=== PATIENT | male | born 1945 | race Caucasian/White ===

== ENCOUNTER 2021-08-02 09:28 | Outpatient (CLI) | payer MEDICARE, BC ==
[2021-08-02] MEDS ORDERED: IOVERSOL 320 100 ML VIAL IVP ONE ×2 (09:43→11:03)
[2021-08-02] MEDS ORDERED: IOPAMIDOL-300 50 ML VIAL ONE (09:43)
[2021-08-02 09:51] LABS: CREATININE 0.8 mg/dL (0.6-1.2)
[2021-08-02] MEDS ORDERED: IOPAMIDOL-300 50 ML VIAL PO ONE (11:02)
--- NOTE | 2021-08-02 11:53 | CT Report ---
PROCEDURE: CHEST W INDICATIONS: SKIN CA CONTRAST: IV CONTRAST: Optiray 320 ml: 100 PO CONTRAST: Isovue 300 ml50 TECHNIQUE: After the administration of intravenous contrast, 1 mm axial images were acquired from the pulmonary apices through the posterior costophrenic angles. Axial 5 mm soft tissue kernel reconstructions were performed as well as 8 mm axial MIP and coronal and sagittal 5 mm reformations. For radiation dose reduction, the following was used: automated exposure control, adjustment of mA and/or kV according to patient size. COMPARISON: None. FINDINGS: Image quality: Excellent. Lungs and pleura: Left lower lobe 0.3 cm, (3/155). A few additional small calcified granuloma. No mas s. No acute air space opacities. No pleural effusions or pneumothorax. Central and peripheral airwa ys are patent and normal in caliber. Mediastinum: Heart size is normal. No pericardial effusion. No mediastinal or hilar adenopathy by size criteria. Thoracic aorta and central pulmonary arteries are normal in size. Esophagus is quoc l in caliber. Small hiatal hernia. Bones and chest wall: No suspicious bony lesions. No vertebral body compression fractures. No axil georgiana or supraclavicular adenopathy by size criteria. Right axillary clips. Tiny right thyroid nodule. Abdomen: Please see separately dictated same day CT abdomen and pelvis. IMPRESSION: 1. Left lower lobe pulmonary nodule measuring 0.3 cm. This likely represents a noncalcified granuloma . There are a few calcified granuloma seen. 2. No suspicious adenopathy. Right axillary clips. Reviewed by: Vladimir Novoa MD on 08/02/2021 11:[address] [facility] Approved by: Vladimir Novoa MD on 08/02/2021 11:51 AM PST Station ID: [id number]
--- NOTE | 2021-08-02 12:01 | CT Report ---
PROCEDURE: Abdomen/Pelvis W INDICATIONS: SKIN CA CONTRAST: IV CONTRAST: Optiray 320 ml: 100 PO CONTRAST: Isovue 300 ml50 TECHNIQUE: After the administration of oral and intravenous contrast, 5 mm thick sections acquired from the diap hragms to the symphysis. 5 mm thick coronal and sagittal reformats were acquired. For radiation dos e reduction, the following was used: automated exposure control, adjustment of mA and/or kV accordin g to patient size. COMPARISON: None. FINDINGS: Image quality: Excellent. ABDOMEN: Lung bases: Please see separately dictated same day CT chest. Solid organs: Liver and spleen are normal in size and enhancement. Tiny hypodensity in the left lobe of the liver. Likely benign cyst or hemangioma. Tiny hypodensity in the spleen likely a benign cyst or hemangioma. Gallbladder is unremarkable. Biliary system is non dilated. Pancreas enhances quoc lly. No adrenal nodules. Kidneys demonstrate normal size and enhancement, without hydronephrosis. B ilateral extrarenal pelvises. Tiny hypodensity at the superior pole of the right kidney. Right kidney nonobstructing calculus measuring 0.3 cm. Left kidney nonobstructing calculus measuring 0.4 cm. Peritoneum and bowel: Bowel loops demonstrate normal wall thickness and caliber. A few colonic diver ticuli. Normal appendix. No free fluid or air. Nodes and vessels: No retroperitoneal or mesenteric adenopathy by size criteria. Aorta and inferior vena cava are normal in size. Miscellaneous: No ventral hernias. PELVIS: Genitourinary: Small areas of thickening in the left bladder wall with calcification, (6/38). Bladder is distended. Prostatomegaly. Miscellaneous: No inguinal hernias or adenopathy. Clips at the right groin. Bones: No suspicious bony lesions. Multilevel DDD. No vertebral body compression fractures. IMPRESSION: 1. No metastatic disease is identified. No suspicious adenopathy. 2. Focal areas of thickening in the left bladder with nondependent calcifications. This is indetermin ate but could represent bladder cancer. Recommend further evaluation with cystoscopy. 3. Small nonobstructing kidney stones. 4. Tiny hypodensity in the liver and spleen. Likely benign cysts or hemangiomas. Reviewed by: Vladimir Novoa MD on 08/02/2021 11:59 AM PST Approved by: Vladimir Novoa MD on 08/02/2021 11:59 AM [facility] Station ID: [id number]
== END 2021-08-02 09:29 | disposition home or self-care (01) ==
LOC: DI 09:28
PROVIDERS: ATTEND Physician Assistant Medical
DX: C43.61 Malignant melanoma of right upper limb, including shoulder (principal); R93.41 Abnormal radiologic findings on diagnostic imaging of renal pelvis, ureter, or bladder; N20.0 Calculus of kidney; R93.2 Abnormal findings on diagnostic imaging of liver and biliary tract; R93.89 Abnormal findings on diagnostic imaging of other specified body structures
CPT/HCPCS: 36415; 71260; 74177; 82565; Q9967

== ENCOUNTER 2021-11-30 19:56 | Emergency (ER) | payer MEDICARE, BC ==
--- NOTE | 2021-11-30 21:08 | ED Physician Documentation ---
PD HPI MALE - Stated complaint Stated Complaint: POST OP/UNABLE TO URINATE - Chief complaint Chief Complaint: Abd Pain - History obtained from History obtained from: Patient - History of Present Illness Timing - onset: Today Timing - duration: Hours Timing - details: Abrupt onset, Still present Associated symptoms: Unable to urinate PD HPI MALE CONTRIB FACTORS: Other (bladder surgery yesterday) Similar symptoms before: Diagnosis (urinary retention) Recently seen: Surgery - Additional information Additional information: 76-year-old Hector John has had a bladder resection done yesterday at [facility] and following that he had some difficulty with urinary retention and he had an In-N-Out cath done. When he was still unable to void, he had a Michaud catheter placed. Today he was instructed to remove the catheter which he did and he has not been able to void following that. He is taking some Pyridium and Cipro. He is also taking some oxycodone. Review of Systems Constitutional: denies: Fever Eyes: denies: Decreased vision Ears: denies: Ear pain Nose: denies: Congestion Throat: denies: Sore throat Cardiac: denies: Chest pain / pressure Respiratory: denies: Dyspnea GI: denies: Abdominal Pain, Nausea, Vomiting, Diarrhea : reports: Unable to Void, Hematuria Skin: denies: Rash Musculoskeletal: denies: Neck pain, Back pain, Extremity pain PD PAST MEDICAL HISTORY - Allergies Allergies/Adverse Reactions: Allergies Allergy/AdvReac Type Severity Reaction Status Date / Time sulfite Allergy Respiratory Verified 11/30/21 20:24 PD ED PE NORMAL - Vitals Vital signs reviewed: Yes (hypertensive ) - General General: Alert and oriented X 3, No acute distress, Well developed/nourished - HEENT HEENT: Atraumatic, PERRL - Respiratory Respiratory: No respiratory distress - Abdomen Abdomen: Normal bowel sounds, Soft, Non distended, No organomegaly, Other (minimal suprapubic tenderness) - Back Back: No CVA TTP, No spinal TTP - Derm Derm: Normal color, Warm and dry, No rash - Extremities Extremities: No deformity, No edema - Neuro Neuro: Alert and oriented X 3, tierce filler 2-12 intact, No motor deficit, No sensory deficit, Normal speech Eye Opening: Spontaneous Motor: Obeys Commands Verbal: Oriented GCS Score: 15 - Psych Psych: Normal mood, Normal affect Results - Vitals Vitals: Vital Signs - 24 hr 11/30/21 11/30/21 11/30/21 20:20 22:30 23:39 Temperature 36.8 C Heart Rate 86 78 84 Respiratory 14 17 14 Rate Blood Pressure 176/83 H 166/76 H 144/78 H O2 Saturation 97 96 98 Oxygen O2 Source Room air Procedures - Bedside sono Bedside sono by EMP: with the use of bedside ultrasound the bladder is imaged. It is full and there is a large clot about 200cc in size at the opening. The michaud balloon appears mid clot. PD MEDICAL DECISION MAKING - ED course Complexity details: reviewed results, re-evaluated patient, considered differential, d/w patient ED course: 76-year-old male with acute urinary retention after a surgical procedure has failed after removal of his Michaud catheter. He presents to our emergency department with retention and a bladder scan shows 550 mL after the patient is able to void 100 mL. We placed a 14 Romanian Michaud catheter assuming a simple retention and got no urine back. Bedside ultrasound was used and this demonstrated presence of a large clot in the bladder as well as urine. The nurse was able to flush the catheter and dislodge the clot and drain urine. Patient had relief of any pain. Dr. Rousseau the on-call urologist recommended a follow-up with Dr. Blanco in the morning by telephone. He indicates there is likely further work to be done on the bladder. The patient was very resistant to a suggestion of placement of a three-way Michaud catheter and bladder irrigation. He felt that he had had too much instrumentation and this was agonizing to the patient. We advised the patient to seek care at [facility] if he has further issues with not draining. Departure - Departure Disposition: 01 Home, Self Care Clinical Impression: Acute urinary retention Condition: Stable Instructions: ED Catheter Care Michaud, ED Retention Urinary Male Follow-Up: CHON VILLALOBOS MD [Primary Care Provider] - Comments: Hector, today it looks like you have clot retention and there is likely more work that will the need to be done on your bladder. Currently it looks like urine is flowing and the recommendation is to follow-up with Dr. Blanco tomorrow morning by telephone. If you have recurrence of your retention and become uncomfortable the recommendation is to follow-up at [facility] where you can see Dr. Bella directly. Discharge Date/Time: 11/30/21 23:40
[2021-11-30] MEDS ORDERED: LIDOCAINE 2% URO-JET 5 ML SYRINGE UR ONE (21:52)
[2021-11-30 23:40] VITALS: BP 144/78
== END 2021-11-30 23:40 | disposition home or self-care (01) ==
LOC: ED 19:56
DX: N32.89 Other specified disorders of bladder (principal); R33.8 Other retention of urine
CPT/HCPCS: 51702; 99282; 99283

== ENCOUNTER 2022-03-07 11:53 | Outpatient (CLI) | payer MEDICARE, BC ==
[~2022-03-07 11:53] MED LIST: GADOBUTROL 10 MMOL/10 ML VIAL ONE
[2022-03-07] MEDS ORDERED: DIATRIZOATE MEGLU/DIATRIZO SOD 30 ML BOTTLE PO ONE (12:14)
[2022-03-07 12:30] LABS: CREATININE 0.8 mg/dL (0.6-1.2)
[2022-03-07] MEDS ORDERED: GADOBUTROL 10 MMOL/10 ML VIAL IVP ONE (13:59)
--- NOTE | 2022-03-07 14:48 | MRI Report ---
PROCEDURE: Brain W/WO INDICATIONS: MALIGNANT MELANOMA CONTRAST: IV CONTRAST: Gadavist ml: 10 TECHNIQUE: Noncontrast axial T1 spin echo, axial T2 fast spin echo, sagittal and axial FLAIR, coronal T2 fast sp in echo, axial gradient echo, axial diffusion and ADC through the brain. After the administration of contrast, axial and coronal T1 spin echo with fat saturation through the brain. COMPARISON: None. FINDINGS: Image quality: Excellent. CSF spaces: Basal cisterns are patent. No extra-axial fluid collections. Ventricles are normal in size and shape. Brain: No midline shift. No intracranial bleeds or masses. No abnormal intracranial enhancement. There is cerebral volume loss for age. There is periventricular white matter chronic small vessel is chemic change. The brainstem appears normal. Diffusion-weighted images demonstrate no acute ischemi c insults. No chronic ischemic insults. Normal intravascular flow voids are present. Skull and face: Calvarial marrow is normal in signal. Orbits appear normal. Sinuses: Sinuses appear clear. Minimal scattered areas of fluid are present within the mastoid air cells bilaterally. IMPRESSION: 1. No acute intracranial process. No visualized metastatic disease. 2. Mild atrophy and chronic microvascular ischemic changes. Reviewed by: Lissette Murguia MD on 03/07/2022 2:47 PM PDT Approved by: Lissette Murguia MD on 03/07/2022 2:47 PM PDT Station ID: [id number]
--- NOTE | 2022-03-07 16:11 | CT Report ---
PROCEDURE: CHEST W INDICATIONS: MALIGNANT MELANOMA CONTRAST: IV CONTRAST: Optiray 320 ml: 100 PO CONTRAST: Optiray 320 ml50 TECHNIQUE: After the administration of intravenous contrast, 1 mm axial images were acquired from the pulmonary apices through the posterior costophrenic angles. Axial 5 mm soft tissue kernel reconstructions were performed as well as 8 mm axial MIP and coronal and sagittal 5 mm reformations. For radiation dose reduction, the following was used: automated exposure control, adjustment of mA and/or kV according to patient size. COMPARISON: CT chest 08/02/2021. FINDINGS: Image quality: Excellent. Lungs and pleura: No acute air space opacities. Pulmonary nodule in the left lower lobe measuring 2 mm, (3/146), unchanged. Right middle lobe calcified granuloma. No pleural effusions or pneumothorax. Central and peripheral airways are patent and normal in caliber. Mediastinum: Heart size is normal. No pericardial effusion. No mediastinal or hilar adenopathy by size criteria. Thoracic aorta and central pulmonary arteries are normal in size. Esophagus is quoc l in caliber. No hiatal hernia. Bones and chest wall: No suspicious bony lesions. No vertebral body compression fractures. No axil georgiana or supraclavicular adenopathy by size criteria. Right axillary clips. The thyroid is normal in s ize and there are no incidental findings.. Abdomen: Visualized upper abdominal solid organs appear normal. Upper abdominal bowel loops are nor mal in caliber. IMPRESSION: 1. No new or enlarging pulmonary nodules. Left lower lobe pulmonary nodule measuring 2 mm is unchange d. 2. No metastatic disease identified the chest. Please see separately dictated CT abdomen and pelvis. Reviewed by: Vladimir Novoa MD on 03/07/2022 4:09 PM PDT Approved by: Vladimir Novoa MD on 03/07/2022 4:09 PM PDT Station ID: [id number]
--- NOTE | 2022-03-07 16:35 | CT Report ---
PROCEDURE: Abdomen/Pelvis W INDICATIONS: MALIGNANT MELANOMA CONTRAST: IV CONTRAST: Optiray 320 ml: 100 PO CONTRAST: Optiray 320 ml50 TECHNIQUE: After the administration of oral and intravenous contrast, 5 mm thick sections acquired from the diap hragms to the symphysis. 5 mm thick coronal and sagittal reformats were acquired. For radiation dos e reduction, the following was used: automated exposure control, adjustment of mA and/or kV accordin g to patient size. COMPARISON: CT abdomen pelvis 08/02/2021 FINDINGS: Image quality: Excellent. ABDOMEN: Lung bases: Lung bases are clear. Heart size is normal. Solid organs: Liver is normal in size and enhancement. Evidence focus in the left lobe liver is unch anged. Gallbladder is unremarkable. Biliary system is non dilated. Pancreas enhances normally. Hypo dense focus in the spleen is unchanged. No splenomegaly. Small splenule. No adrenal nodules. Kidneys demonstrate normal size and enhancement. Mild left hydroureter is unchanged. Bilateral extra renal pelvises. Nonobstructing right kidney stone measuring 0.3 cm. There is scarring at the right ki dney. Nonobstructing left kidney stone measuring is 0.3 cm. One of the stones previously seen in the left kidney is located in the urinary bladder measuring 0.5 cm. Peritoneum and bowel: Bowel loops demonstrate normal wall thickness and caliber. Diverticulosis. Nor mal appendix. No free fluid or air. Nodes and vessels: No retroperitoneal or mesenteric adenopathy by size criteria. Aorta and inferior vena cava are normal in size. Miscellaneous: No ventral hernias. PELVIS: Genitourinary: Stone in the bladder measuring 0.5 cm. Bladder wall calcifications are again seen. Pro statomegaly. Miscellaneous: Possible fat-containing right inguinal hernia. No adenopathy. Right groin clips. Bones: No suspicious bony lesions. DDD. No vertebral body compression fractures. IMPRESSION: 1. No convincing metastatic disease. Hypodense foci in the liver and the spleen are unchanged. These could represent small cyst or hemangioma. No adenopathy. 2. New small small stone in the bladder from the left kidney. Mildly prominent left ureter. Small brent ateral nonobstructing kidney stones. 3. Bladder wall calcifications are unchanged. Cannot exclude bladder malignancy. Reviewed by: Vladimir Novoa MD on 03/07/2022 4:34 PM PDT Approved by: Vladimir Novoa MD on 03/07/2022 4:34 PM PDT Station ID: [id number]
== END 2022-03-07 11:54 | disposition home or self-care (01) ==
LOC: LAB 11:53
PROVIDERS: ATTEND Internal Medicine Medical Oncology
DX: C43.61 Malignant melanoma of right upper limb, including shoulder (principal); R91.1 Solitary pulmonary nodule; N21.0 Calculus in bladder; N40.0 Benign prostatic hyperplasia without lower urinary tract symptoms; N20.0 Calculus of kidney
CPT/HCPCS: 36415; 70553; 71260; 74177; 82565; A9585; Q9963; Q9967

== ENCOUNTER 2022-04-08 10:52 | Outpatient (CLI) | payer MEDICARE, BC ==
[2022-04-08 14:44] LABS: BILIRUBIN,URINE NEGATIVE (NEGATIVE); GLUCOSE, URINE (UA) NEGATIVE (NEGATIVE); KETONES,URINE (UA) NEGATIVE (NEGATIVE); LEUKOCYTE ESTERASE, URINE MODERATE (NEGATIVE); NITRITE,URINE NEGATIVE (NEGATIVE); OCCULT BLOOD,URINE LARGE (NEGATIVE); PROTEIN,URINE TRACE mg/dL (NEGATIVE); UROBILINOGEN,URINE 0.2 (NORMAL) E.U./dL (NORMAL)
[2022-04-08 14:47] LABS: CLARITY,URINE CLOUDY (CLEAR)
[2022-04-08 14:59] LABS: BACTERIA,URINE Many /HPF (None Seen); SQUAMOUS EPITHELIAL CELL,UR NONE SEEN (<= Few); WBC,URINE >25 /HPF (0-3)
== END 2022-04-08 10:53 | disposition home or self-care (01) ==
LOC: LAB.S 10:52
PROVIDERS: ATTEND Urology
DX: C67.9 Malignant neoplasm of bladder, unspecified (principal)
CPT/HCPCS: 81001; 81003; 87077; 87086; 87181

== ENCOUNTER 2022-05-09 13:41 | Outpatient (CLI) | payer MEDICARE, BC ==
[2022-05-09 20:03] LABS: BILIRUBIN,URINE NEGATIVE (NEGATIVE); GLUCOSE, URINE (UA) NEGATIVE (NEGATIVE); KETONES,URINE (UA) NEGATIVE (NEGATIVE); LEUKOCYTE ESTERASE, URINE LARGE (NEGATIVE); NITRITE,URINE NEGATIVE (NEGATIVE); OCCULT BLOOD,URINE SMALL (NEGATIVE); PROTEIN,URINE TRACE mg/dL (NEGATIVE); UROBILINOGEN,URINE 0.2 (NORMAL) E.U./dL (NORMAL)
[2022-05-09 20:04] LABS: CLARITY,URINE CLOUDY (CLEAR)
[2022-05-09 20:47] LABS: WBC,URINE >25 /HPF (0-3)
[2022-05-09 20:48] LABS: BACTERIA,URINE Many /HPF (None Seen); SQUAMOUS EPITHELIAL CELL,UR NONE SEEN (<= Few)
== END 2022-05-09 13:42 | disposition home or self-care (01) ==
LOC: LAB.S 13:41
PROVIDERS: ATTEND Urology
DX: C67.9 Malignant neoplasm of bladder, unspecified (principal)
CPT/HCPCS: 81001; 87086

== ENCOUNTER 2022-05-30 14:41 | Outpatient (CLI) | payer MEDICARE, BC ==
[2022-05-30 19:48] LABS: BILIRUBIN,URINE NEGATIVE (NEGATIVE); GLUCOSE, URINE (UA) NEGATIVE (NEGATIVE); KETONES,URINE (UA) NEGATIVE (NEGATIVE); LEUKOCYTE ESTERASE, URINE MODERATE (NEGATIVE); NITRITE,URINE POSITIVE (NEGATIVE); OCCULT BLOOD,URINE MODERATE (NEGATIVE); PROTEIN,URINE 30 mg/dL (NEGATIVE); UROBILINOGEN,URINE 0.2 (NORMAL) E.U./dL (NORMAL)
[2022-05-30 19:56] LABS: CLARITY,URINE CLOUDY (CLEAR)
[2022-05-30 20:12] LABS: BACTERIA,URINE Moderate /HPF (None Seen); SQUAMOUS EPITHELIAL CELL,UR NONE SEEN (<= Few); WBC,URINE >25 /HPF (0-3)
== END 2022-05-30 14:42 | disposition home or self-care (01) ==
LOC: LAB.S 14:41
PROVIDERS: ATTEND Urology
DX: R39.9 Unspecified symptoms and signs involving the genitourinary system (principal)
CPT/HCPCS: 81001; 87077; 87086; 87181

== ENCOUNTER 2022-06-20 11:59 | Outpatient (CLI) | payer MEDICARE, BC ==
[2022-06-20 15:00] LABS: BILIRUBIN,URINE NEGATIVE (NEGATIVE); GLUCOSE, URINE (UA) NEGATIVE (NEGATIVE); KETONES,URINE (UA) NEGATIVE (NEGATIVE); LEUKOCYTE ESTERASE, URINE LARGE (NEGATIVE); NITRITE,URINE POSITIVE (NEGATIVE); OCCULT BLOOD,URINE MODERATE (NEGATIVE); PROTEIN,URINE NEGATIVE (NEGATIVE); UROBILINOGEN,URINE 0.2 (NORMAL) E.U./dL (NORMAL)
[2022-06-20 15:06] LABS: CLARITY,URINE CLOUDY (CLEAR)
[2022-06-20 16:26] LABS: WBC,URINE >25 /HPF (0-3)
[2022-06-20 16:27] LABS: BACTERIA,URINE Many /HPF (None Seen); SQUAMOUS EPITHELIAL CELL,UR FEW Squamous (<= Few)
== END 2022-06-20 12:00 | disposition home or self-care (01) ==
LOC: LAB.S 11:59
PROVIDERS: ATTEND Urology
DX: R39.9 Unspecified symptoms and signs involving the genitourinary system (principal)
CPT/HCPCS: 81001; 87077; 87086; 87181

== ENCOUNTER 2022-07-06 09:32 | Outpatient (CLI) | payer MEDICARE, BC ==
[2022-07-06 09:54] LABS: BASOPHILS # (AUTO) 0.1 10^3/uL (0.0-0.1); BASOPHILS % (AUTO) 0.6 %; EOSINOPHILS # (AUTO) 0.1 10^3/uL (0.0-0.7); HCT - HEMATOCRIT 37.1 % (42.0-52.0); HGB - HEMOGLOBIN 11.4 g/dL (14.0-18.0); LYMPHOCYTES # (AUTO) 2.8 10^3/uL (1.5-3.5); LYMPHOCYTES % (AUTO) 30.5 %; MEAN CORPUSCULAR HGB CONC 30.7 g/dL (32.0-36.0); MEAN CORPUSCULAR VOLUME 87.9 fL (80.0-94.0); MEAN PLATELET VOLUME 8.8 fL (7.4-11.4); MONOCYTES # (AUTO) 0.5 10^3/uL (0.0-1.0); MONOCYTES % (AUTO) 5.2 %; NEUTROPHILS # (AUTO) 5.7 10^3/uL (1.5-6.6); NEUTROPHILS % (AUTO) 61.9 %; PLT - PLATELET COUNT 391 10^3/uL (130-450); RED BLOOD COUNT 4.22 10^6/uL (4.70-6.10); RED CELL DISTRIBUTION WIDTH 15.9 % (12.0-15.0); WHITE BLOOD COUNT 9.3 x10^3/uL (4.8-10.8)
[2022-07-06 10:06] LABS: ALBUMIN 3.4 g/dL (3.2-5.5); CALCIUM 9.3 mg/dL (8.5-10.3); CREATININE 1.4 mg/dL (0.6-1.2); POTASSIUM 4.2 mmol/L (3.5-5.0)
[2022-07-06 13:16] LABS: ALBUMIN 3.3 g/dL (3.2-5.5); ALKALINE PHOSPHATASE 57 IU/L (42-121); ALT ALANINE AMINOTRANSFERASE 31 IU/L (10-60); AST ASPARTATE AMINOTRANSFERASE 17 IU/L (10-42); BILIRUBIN,TOTAL 0.2 mg/dL (0.2-1.0); TOTAL PROTEIN 7.2 g/dL (6.7-8.2)
[2022-07-06 13:51] LABS: BILIRUBIN,DIRECT < 0.1 mg/dL (0.1-0.5)
== END 2022-07-06 09:33 | disposition home or self-care (01) ==
LOC: LAB 09:32
PROVIDERS: ATTEND Internal Medicine Medical Oncology
DX: C43.61 Malignant melanoma of right upper limb, including shoulder (principal)
CPT/HCPCS: 36415; 80069; 80076; 85025

== ENCOUNTER 2022-07-06 09:33 | Outpatient (CLI) | payer MEDICARE, BC ==
[2022-07-06] MEDS ORDERED: iohexoL-300 100 ML VIAL ONE (10:03)
[2022-07-06] MEDS ORDERED: DIATRIZOATE MEGLU/DIATRIZO SOD 30 ML BOTTLE PO ONE ×2 (10:03→16:51)
--- NOTE | 2022-07-06 15:41 | CT Report ---
PROCEDURE: CHEST W INDICATIONS: MELANOMA OF SKIN CONTRAST:100ml Omnipauqe 300 TECHNIQUE: After the administration of intravenous contrast, 1 mm axial images were acquired from the pulmonary apices through the posterior costophrenic angles. Axial 5 mm soft tissue kernel reconstructions were performed as well as 8 mm axial MIP and coronal and sagittal 5 mm reformations. For radiation dose reduction, the following was used: automated exposure control, adjustment of mA and/or kV according to patient size. COMPARISON: 03/07/2022 FINDINGS: Image quality: Excellent. Lungs and pleura: A 2 to 3 mm superior segment left lower lobe lung nodule is redemonstrated, . No other lung nodules or masses. No acute air space opacities. No pleural effusions or pneumothorax . Central and peripheral airways are patent and normal in caliber. Mediastinum: Heart size is normal. No pericardial effusion. No mediastinal or hilar adenopathy by size criteria. Thoracic aorta and central pulmonary arteries are normal in size. Esophagus is quoc l in caliber. No hiatal hernia. Bones and chest wall: No suspicious bony lesions. No vertebral body compression fractures. Surgical clips in the right axilla. No axillary or supraclavicular adenopathy by size criteria. Minor bilater al gynecomastia. No suspicious chest wall nodules. The thyroid is normal in size and there are no in cidental findings.. Abdomen: Dictated separately. IMPRESSION: 1. Stable tiny left lower lobe lung nodule. This is nonspecific. 2. No evidence of metastatic disease in the chest. Reviewed by: Madison Burgos MD on 07/06/2022 2:40 PM [facility] Approved by: Madison Burgos MD on 07/06/2022 2:40 PM [facility] Station ID: [id number]
--- NOTE | 2022-07-06 15:54 | CT Report ---
PROCEDURE: ABDOMEN/PELVIS W INDICATIONS: MELANOMA OF SKIN CONTRAST: 100ml Omnipauqe 300 TECHNIQUE: After the administration of IV and oral contrast, 5 mm thick sections acquired from the diaphragms to the symphysis. 5 mm thick coronal and sagittal reformats were acquired. For radiation dose reducti on, the following was used: automated exposure control, adjustment of mA and/or kV according to deloris ent size. COMPARISON: 03/07/2022, 08/02/2021 FINDINGS: Image quality: Excellent. ABDOMEN: Lung bases: Dictated separately Solid organs: Liver and spleen are normal in size and enhancement. A small bilobed cystic lesion al bernadine the posterior margin of the lower spleen has become minimally more prominent compared to prior st udies, potentially due to phase of IV contrast. It now measures 1.4 cm, previously 1.2 cm. Gallbladde r is normal. Biliary system is non dilated. Pancreas enhances normally. No adrenal nodules. The kidneys are symmetric in size with symmetric enhancement and lobular margin as before. There has been mild increase of moderate bilateral, symmetric hydronephrosis and hydroureter. There is a depend ent 4 mm, nonobstructing right distal ureteral calcification. There is a punctate nonobstructing depe ndent left distal ureteral calcification. No retained intrarenal calculi. Peritoneum and bowel: Bowel loops demonstrate normal wall thickness and caliber. No free fluid or a ir. Nodes and vessels: Shotty retroperitoneal lymph nodes. No retroperitoneal or mesenteric adenopathy b y size criteria. Aorta and inferior vena cava are normal in size. Miscellaneous: No ventral hernias. PELVIS: Genitourinary: The urinary bladder is distended. There is irregular thickening of the right and poste rior urinary bladder wall. There is a dependent calcification posteriorly measuring about 7 mm. Mild anterior perivesicular fat stranding. There are a few foci of gas within the anterior superior part o f the bladder. The prostate gland is minimally enlarged. Miscellaneous: No inguinal hernias or adenopathy. Surgical clips in the right inguinal region. Bones: No suspicious bony lesions. No vertebral body compression fractures. IMPRESSION: 1. There has been progressive, symmetric, now moderate hydroureteronephrosis. This is likely due to u rinary bladder wall thickening, as the bilateral distal ureteral stones seen are nonobstructive. Cyst oscopy to exclude malignancy is recommended. 2. Slight increased prominence of the bilobed splenic lesion, most likely benign hemangioma or lympha ngioma. Continued attention to spleen on subsequent imaging is recommended. 3. Increased prominence of shotty retroperitoneal lymphadenopathy. Reviewed by: Madison Burgos MD on 07/06/2022 2:53 PM [facility] Approved by: Madison Burgos MD on 07/06/2022 2:53 PM [facility] Station ID: [id number]
[2022-07-06] MEDS ORDERED: iohexoL-300 100 ML VIAL IVP ONE (16:51)
== END 2022-07-06 09:34 | disposition home or self-care (01) ==
LOC: DI 09:33
PROVIDERS: ATTEND Internal Medicine Medical Oncology
DX: C43.61 Malignant melanoma of right upper limb, including shoulder (principal); N13.30 Unspecified hydronephrosis; R93.89 Abnormal findings on diagnostic imaging of other specified body structures; R59.0 Localized enlarged lymph nodes
CPT/HCPCS: 36415; 71260; 74177; 80069; 80076; 85025; Q9963; Q9967

== ENCOUNTER 2022-07-20 08:34 | Outpatient (CLI) | payer MEDICARE, BC ==
[2022-07-20 15:00] LABS: BILIRUBIN,URINE NEGATIVE (NEGATIVE); GLUCOSE, URINE (UA) NEGATIVE (NEGATIVE); KETONES,URINE (UA) NEGATIVE (NEGATIVE); LEUKOCYTE ESTERASE, URINE LARGE (NEGATIVE); NITRITE,URINE POSITIVE (NEGATIVE); OCCULT BLOOD,URINE SMALL (NEGATIVE); PROTEIN,URINE TRACE mg/dL (NEGATIVE); UROBILINOGEN,URINE 0.2 (NORMAL) E.U./dL (NORMAL)
[2022-07-20 15:07] LABS: CLARITY,URINE CLOUDY (CLEAR)
[2022-07-20 15:22] LABS: BACTERIA,URINE Many /HPF (None Seen); SQUAMOUS EPITHELIAL CELL,UR NONE SEEN (<= Few); WBC,URINE >25 /HPF (0-3)
== END 2022-07-20 08:35 | disposition home or self-care (01) ==
LOC: LAB.S 08:34
PROVIDERS: ATTEND Urology
DX: R39.9 Unspecified symptoms and signs involving the genitourinary system (principal)
CPT/HCPCS: 81001; 81003; 87086

== ENCOUNTER 2022-07-20 11:41 | Outpatient (CLI) | payer MEDICARE, BC ==
[2022-07-20 11:53] LABS: BASOPHILS % (AUTO) 0.4 %; EOSINOPHILS # (AUTO) 0.1 10^3/uL (0.0-0.7); EOSINOPHILS % (AUTO) 0.7 %; HCT - HEMATOCRIT 35.6 % (42.0-52.0); HGB - HEMOGLOBIN 11.1 g/dL (14.0-18.0); LYMPHOCYTES # (AUTO) 1.9 10^3/uL (1.5-3.5); LYMPHOCYTES % (AUTO) 25.3 %; MEAN CORPUSCULAR HEMOGLOBIN 27.5 pg (27.0-31.0); MEAN CORPUSCULAR HGB CONC 31.2 g/dL (32.0-36.0); MEAN CORPUSCULAR VOLUME 88.3 fL (80.0-94.0); MEAN PLATELET VOLUME 10.1 fL (7.4-11.4); MONOCYTES # (AUTO) 0.7 10^3/uL (0.0-1.0); MONOCYTES % (AUTO) 9.7 %; NEUTROPHILS # (AUTO) 4.7 10^3/uL (1.5-6.6); NEUTROPHILS % (AUTO) 63.6 %; PLT - PLATELET COUNT 141 10^3/uL (130-450); RED BLOOD COUNT 4.03 10^6/uL (4.70-6.10); RED CELL DISTRIBUTION WIDTH 16.9 % (12.0-15.0); WHITE BLOOD COUNT 7.3 x10^3/uL (4.8-10.8)
[2022-07-20 12:05] LABS: CALCIUM 9.4 mg/dL (8.5-10.3); CREATININE 1.1 mg/dL (0.6-1.2)
== END 2022-07-20 11:42 | disposition home or self-care (01) ==
LOC: LAB 11:41
PROVIDERS: ATTEND Physician Assistant Medical
DX: C43.61 Malignant melanoma of right upper limb, including shoulder (principal); R39.9 Unspecified symptoms and signs involving the genitourinary system
CPT/HCPCS: 36415; 80048; 81001; 81003; 85025; 87086

== ENCOUNTER 2022-08-22 13:51 | Outpatient (CLI) | payer MEDICARE, BC | END 2022-08-22 13:52 | disposition home or self-care (01) | LOC: LAB.S 13:51 | PROVIDERS: ATTEND Urology | DX: N40.1 Benign prostatic hyperplasia with lower urinary tract symptoms (principal); N13.8 Other obstructive and reflux uropathy | CPT/HCPCS: 87077; 87086; 87181 ==

== ENCOUNTER 2023-01-16 10:55 | Outpatient (CLI) | payer MEDICARE, BC ==
[2023-01-16 14:33] LABS: BASOPHILS # (AUTO) 0.1 10^3/uL (0.0-0.1); BASOPHILS % (AUTO) 0.9 %; EOSINOPHILS # (AUTO) 0.1 10^3/uL (0.0-0.7); EOSINOPHILS % (AUTO) 1.7 %; HCT - HEMATOCRIT 41.1 % (42.0-52.0); HGB - HEMOGLOBIN 13.2 g/dL (14.0-18.0); LYMPHOCYTES # (AUTO) 3.8 10^3/uL (1.5-3.5); LYMPHOCYTES % (AUTO) 50.3 %; MEAN CORPUSCULAR HEMOGLOBIN 29.8 pg (27.0-31.0); MEAN CORPUSCULAR HGB CONC 32.1 g/dL (32.0-36.0); MEAN CORPUSCULAR VOLUME 92.8 fL (80.0-94.0); MEAN PLATELET VOLUME 11.3 fL (7.4-11.4); MONOCYTES # (AUTO) 0.5 10^3/uL (0.0-1.0); MONOCYTES % (AUTO) 6.7 %; NEUTROPHILS % (AUTO) 40.3 %; PLT - PLATELET COUNT 148 10^3/uL (130-450); RED BLOOD COUNT 4.43 10^6/uL (4.70-6.10); RED CELL DISTRIBUTION WIDTH 13.7 % (12.0-15.0); WHITE BLOOD COUNT 7.5 x10^3/uL (4.8-10.8)
[2023-01-16 15:33] LABS: ALBUMIN 4.2 g/dL (3.2-5.5); ALBUMIN/GLOBULIN RATIO 1.6 (1.0-2.2); BILIRUBIN,TOTAL 0.7 mg/dL (0.2-1.0); CALCIUM 9.3 mg/dL (8.5-10.3); CREATININE 1.1 mg/dL (0.6-1.3); POTASSIUM 4.1 mmol/L (3.5-4.5); TOTAL PROTEIN 6.8 g/dL (6.4-8.9)
== END 2023-01-16 10:56 | disposition home or self-care (01) ==
LOC: LAB.S 10:55
PROVIDERS: ATTEND Internal Medicine Medical Oncology
DX: C43.61 Malignant melanoma of right upper limb, including shoulder (principal)
CPT/HCPCS: 36415; 80053; 85025

== ENCOUNTER 2023-01-17 09:51 | Outpatient (CLI) | payer MEDICARE, BC ==
--- NOTE | 2023-01-17 15:40 | CT Report ---
PROCEDURE: ABDOMEN/PELVIS W INDICATIONS: MELANOMA RIGHT ARM CONTRAST: gadavist 10ml TECHNIQUE: After the administration of oral and intravenous contrast, 5 mm thick sections acquired from the diap hragms to the symphysis. 5 mm thick coronal and sagittal reformats were acquired. For radiation dos e reduction, the following was used: automated exposure control, adjustment of mA and/or kV accordin g to patient size. COMPARISON: CT 07/06/2022 FINDINGS: Image quality: Excellent. Lung bases and heart: Unremarkable. Liver: Stable 6 mm hypoattenuating lesion in the liver dome on the left (series 2, image 16). Gallbladder and biliary tree: No radiopaque stones or wall thickening. No biliary dilation. Spleen: No splenomegaly. Stable bilobed hypoattenuating lesion (series 2, image 29). Pancreas: No pancreatic ductal dilation. Adrenals: No adrenal nodule. Kidneys and ureters: No hydronephrosis. No renal cystic lesion which requires follow up. No solid mas s. lobulation. Bowel and peritoneum: No bowel distension. No pathologic free fluid. Diverticulosis without evidence of diverticulitis. Lymph nodes: No central or retroperitoneal adenopathy. Vessels: No infrarenal aortic aneurysm. PELVIS Reproductive organs: Unremarkable. Bladder: No abnormal wall thickening, accounting for underdistension. Pelvic lymph nodes: No pelvic adenopathy by size criteria. Bones: No aggressive osseous abnormality. Other: Small, fat-containing inguinal hernias. IMPRESSION: No evidence metastatic disease. Resolved bladder wall thickening. Stable punctate liver lesion and bilobed splenic lesion. Reviewed by: Anthony Vasquez on 01/17/2023 3:39 PM PDT Approved by: Anthony Vasquez on 01/17/2023 3:39 PM PDT Station ID: [id number]
[2023-01-17] MEDS ORDERED: BARIUM SULFATE 450 ML BOTTLE PO ONE (16:22)
[2023-01-17] MEDS ORDERED: iohexoL-300 100 ML VIAL IVP ONE (16:23)
--- NOTE | 2023-01-17 18:27 | MRI Report ---
PROCEDURE: BRAIN W/WO INDICATIONS: MELANOMA RIGHT ARM CONTRAST: gadavist 10ml TECHNIQUE: Noncontrast axial T1 spin echo, axial T2 fast spin echo, sagittal and axial FLAIR, coronal T2 fast sp in echo, axial gradient echo, axial diffusion and ADC through the brain. After the administration of contrast, axial and coronal T1 spin echo with fat saturation through the brain. COMPARISON: 03/07/2022. FINDINGS: Image quality: Excellent. CSF spaces: Basal cisterns are patent. No extra-axial fluid collections. Ventricles are normal in size and shape. Brain: No midline shift. No intracranial bleeds or masses. No abnormal intracranial enhancement. There is cerebral volume loss for age. There is periventricular white matter chronic small vessel is chemic change. The brainstem appears normal. Diffusion-weighted images demonstrate no acute ischemi c insults. No chronic ischemic insults. Very mild scattered foci of increased T2 signal noted in eyad p white matter structures, within normal limits for patient age. Normal intravascular flow voids are present. Skull and face: Calvarial marrow is normal in signal. Orbits appear normal. Sinuses: Sinuses and mastoids appear clear. IMPRESSION: Unremarkable brain MRI with and without contrast for patient age. No metastatic disease. Very mild small vessel ischemic change. Reviewed by: Manoj Bliss MD on 01/17/2023 6:26 PM PDT Approved by: Manoj Bliss MD on 01/17/2023 6:26 PM PDT Station ID: [id number]
--- NOTE | 2023-01-18 17:42 | CT Report ---
PROCEDURE: CHEST W INDICATIONS: MELANOMA RIGHT ARM CONTRAST: gadavist 10ml TECHNIQUE: After the administration of intravenous contrast, 1 mm axial images were acquired from the pulmonary apices through the posterior costophrenic angles. Axial 5 mm soft tissue kernel reconstructions were performed as well as 8 mm axial MIP and coronal and sagittal 5 mm reformations. For radiation dose reduction, the following was used: automated exposure control, adjustment of mA and/or kV according to patient size. COMPARISON: Same day acquired CT abdomen pelvis with contrast 01/17/2023. FINDINGS: Image quality: Excellent. Lungs and pleura: No consolidation. No pleural effusions. No pneumothorax. Scattered calcified pulmo nary nodules. A few scattered micronodules, for example in the right upper lobe (axial image 39, MIP image 34) and right lower lobe (axial image 45, MIP image 40). Mediastinum: Heart size is normal. No pericardial effusion. No large vessel abnormality. No mediastin al adenopathy by size criteria. Chest wall and lower neck: Thyroid is unremarkable. No axillary or supraclavicular adenopathy by size . Surgical clips in the right axilla. Bones: No aggressive osseous abnormality. Moderate multilevel degenerative changes. Upper Abdomen: Please see separately dictated abdomen and pelvis acquired same day.. IMPRESSION: Scattered 1 to 2 mm pulmonary micronodules are indeterminate. Recommend attention on follow-up. Other inman no evidence of metastatic disease in the chest. Please see separately dictated CT abdomen pelvis . Reviewed by: Carla Vargas MD on 01/18/2023 5:40 PM PDT Approved by: Carla Vargas MD on 01/18/2023 5:40 PM PDT Station ID: [id number]
== END 2023-01-17 09:52 | disposition home or self-care (01) ==
LOC: DI 09:51
PROVIDERS: ATTEND Internal Medicine Medical Oncology
DX: C43.61 Malignant melanoma of right upper limb, including shoulder (principal); R91.8 Other nonspecific abnormal finding of lung field; K76.9 Liver disease, unspecified; D73.89 Other diseases of spleen
CPT/HCPCS: 70553; 71260; 74177; A9270; A9585; Q9967

== ENCOUNTER 2023-08-29 09:10 | Outpatient (CLI) | payer MEDICARE, BC ==
[2023-08-29 14:56] LABS: BASOPHILS # (AUTO) 0.1 10^3/uL (0.0-0.1); BASOPHILS % (AUTO) 0.6 %; EOSINOPHILS # (AUTO) 0.1 10^3/uL (0.0-0.7); EOSINOPHILS % (AUTO) 1.7 %; HCT - HEMATOCRIT 43.7 % (42.0-52.0); HGB - HEMOGLOBIN 13.4 g/dL (14.0-18.0); LYMPHOCYTES # (AUTO) 3.6 10^3/uL (1.5-3.5); LYMPHOCYTES % (AUTO) 44.3 %; MEAN CORPUSCULAR HEMOGLOBIN 29.4 pg (27.0-31.0); MEAN CORPUSCULAR HGB CONC 30.7 g/dL (32.0-36.0); MEAN CORPUSCULAR VOLUME 95.8 fL (80.0-94.0); MEAN PLATELET VOLUME 11.5 fL (7.4-11.4); MONOCYTES # (AUTO) 0.5 10^3/uL (0.0-1.0); MONOCYTES % (AUTO) 6.6 %; NEUTROPHILS # (AUTO) 3.8 10^3/uL (1.5-6.6); NEUTROPHILS % (AUTO) 46.6 %; PLT - PLATELET COUNT 157 10^3/uL (130-450); RED BLOOD COUNT 4.56 10^6/uL (4.70-6.10); WHITE BLOOD COUNT 8.2 x10^3/uL (4.8-10.8)
[2023-08-29 16:12] LABS: ALBUMIN 4.2 g/dL (3.2-5.5); ALBUMIN/GLOBULIN RATIO 1.8 (1.0-2.2); ALKALINE PHOSPHATASE 48 IU/L (42-121); ALT ALANINE AMINOTRANSFERASE 26 IU/L (10-60); AST ASPARTATE AMINOTRANSFERASE 29 IU/L (10-42); BILIRUBIN,TOTAL 0.5 mg/dL (0.2-1.0); BUN - BLOOD UREA NITROGEN 19 mg/dL (6-20); CALCIUM 9.7 mg/dL (8.5-10.3); CARBON DIOXIDE - CO2 29 mmol/L (21-32); CHLORIDE 102 mmol/L (101-111); CHOL/HDL RATIO 2.7 (<5.0); CHOLESTEROL 160 mg/dL; GFR - MDRD 73 (>89); GLUCOSE 124 mg/dL (74-104); HDL CHOLESTEROL 60 mg/dL; LDL CHOLESTEROL,CALCULATED 68 mg/dL; LDL/HDL RATIO 1.1 (<3.6); POTASSIUM 4.4 mmol/L (3.5-4.5); SODIUM 137 mmol/L (135-145); TOTAL PROTEIN 6.6 g/dL (6.4-8.9); TRIGLYCERIDES 161 mg/dL (48-352); VLDL CHOLESTEROL 32 mg/dL
[2023-08-29 21:10] LABS: ESTIMATED AVERAGE GLUCOSE 128 mg/dL (70-100); HEMOGLOBIN A1c% 6.1 % (4.27-6.07)
== END 2023-08-29 09:11 | disposition home or self-care (01) ==
LOC: LAB.S 09:10
PROVIDERS: ATTEND Family Medicine
DX: Z00.00 Encounter for general adult medical examination without abnormal findings (principal); E78.5 Hyperlipidemia, unspecified; Z12.5 Encounter for screening for malignant neoplasm of prostate; R73.03 Prediabetes
CPT/HCPCS: 36415; 80053; 80061; 83036; 85025; G0103; 83721; 84153

== ENCOUNTER 2023-10-10 11:36 | Outpatient (CLI) | payer MEDICARE, BC ==
[2023-10-10] MEDS: iohexoL-300 100 ML VIAL IVP ONE (14:23)
[2023-10-10] MEDS: DIATRIZOATE MEGLU/DIATRIZO SOD 30 ML BOTTLE PO ONE (14:23)
--- NOTE | 2023-10-10 14:59 | CT Report ---
PROCEDURE: Chest W INDICATIONS: MALIGNANT MELANOMA OF RIGHT UPPER LIMB CONTRAST: 100 ml [id number] TECHNIQUE: After the administration of intravenous contrast, a CT scan of the chest was performed. Images were recorded and evaluated at appropriate window settings. Reformats: axial MIP of the chest, coronal and sagittal. For radiation dose reduction, the following was used: automated exposure control, adjustme nt of mA and/or kV according to patient size. COMPARISON: CT chest 01/17/2023, 07/06/2022. Same day CT abdomen pelvis. FINDINGS: Image quality: Diagnostic. Chest wall and lower neck: No thyroid nodule which requires sonographic follow up. No axillary or sup raclavicular adenopathy by size. Right axillary clips. Lungs and pleura: No consolidation. No pleural effusions. No pneumothorax. No suspicious pulmonary no dules which require follow up. Several tiny pulmonary nodules are again seen, grossly similar. Mediastinum: Heart size is normal. No pericardial effusion. No large vessel abnormality. No mediastin al adenopathy by size criteria. Bones: No aggressive osseous abnormality. Upper Abdomen: Unremarkable. IMPRESSION: 1. No metastatic disease identified in the chest. 2. Right axillary clips. No adenopathy. 3. Tiny micro pulmonary nodules appear similar. Reviewed by: Vladimir Novoa MD on 10/10/2023 2:58 PM PDT Approved by: Vladimir Novoa MD on 10/10/2023 2:58 PM PDT Station ID: [id number]
--- NOTE | 2023-10-10 15:22 | CT Report ---
PROCEDURE: Abdomen/Pelvis W INDICATIONS: MALIGNANT MELANOMA OF RIGHT UPPER LIMB CONTRAST: 100 ml [id number] TECHNIQUE: After the administration of intravenous contrast, a CT scan of the abdomen and pelvis was performed. Images were recorded and evaluated at appropriate window settings. Reformats: coronal and sagittal. F or radiation dose reduction, the following was used: automated exposure control, adjustment of mA and /or kV according to patient size. COMPARISON: CT abdomen pelvis 01/17/2023, 07/06/2022. Same day CT chest. FINDINGS: Image quality: Diagnostic. Lower chest: Unremarkable. Liver: No solid mass. Hypodense focus in the left lobe of liver is too small to further characterize. Unchanged. Gallbladder and biliary tree: No radiopaque stones or wall thickening. No biliary dilation. Spleen: No splenomegaly. Small hypodense focus is unchanged. Most likely a benign cyst or hemangioma. Pancreas: No pancreatic ductal dilation. Adrenals: No adrenal nodule. Kidneys and ureters: No hydronephrosis. Renal scarring. No renal cystic lesion which requires follow up. No solid mass. Stomach, bowel and peritoneum: No bowel distension. No pathologic free fluid. Normal appendix. Divert iculum or cyst. Lymph nodes: No central or retroperitoneal adenopathy. Vessels: No infrarenal aortic aneurysm. PELVIS Reproductive organs: Suspect prior TURP. Bladder: No bladder stone identified. Minimal stranding adjacent to the urinary bladder, similar. Wal l thickness is within normal limits. Pelvic lymph nodes: No pelvic adenopathy by size criteria. Bones: No aggressive osseous abnormality. Other: Fat-containing inguinal hernias. No significant ventral hernia. IMPRESSION: 1. No metastatic disease identified. No adenopathy. 2. Minimal stranding surrounding the urinary bladder. This could be seen in the setting of chronic cy stitis. Prior TURP. Reviewed by: Vladimir Novoa MD on 10/10/2023 3:21 PM PDT Approved by: Vladimir Novoa MD on 10/10/2023 3:21 PM PDT Station ID: [id number]
== END 2023-10-10 11:37 | disposition home or self-care (01) ==
LOC: LAB 11:36
PROVIDERS: ATTEND Internal Medicine Medical Oncology
DX: C43.61 Malignant melanoma of right upper limb, including shoulder (principal); R91.8 Other nonspecific abnormal finding of lung field
CPT/HCPCS: 36415; 82565

== ENCOUNTER 2023-11-28 14:48 | Outpatient (CLI) | payer MEDICARE, BC | END 2023-11-28 14:49 | disposition home or self-care (01) | LOC: LAB.S 14:48 | PROVIDERS: ATTEND Urology | DX: C67.9 Malignant neoplasm of bladder, unspecified (principal); N40.1 Benign prostatic hyperplasia with lower urinary tract symptoms; N13.8 Other obstructive and reflux uropathy | CPT/HCPCS: 87086 ==